=== PATIENT | male | born 2000 | race African-American/Black ===

== ENCOUNTER 2022-03-21 17:10 | Emergency (ER) | payer MEDICAID ==
[~2022-03-21] VITALS: Ht 180.3 cm; Wt 100.0 kg
[2022-03-21 18:22] LABS: BASOPHILS % 0.5 % (0.0-2.0); HEMATOCRIT. 38.1 % (42.0-52.0); HEMOGLOBIN. 12.5 g/dL (14.0-18.0); LYMPHOCYTES % 29.1 % (20.0-50.0); MEAN CORPUSCULAR HEMOGLOBIN 28.9 pg (28.0-32.0); MEAN CORPUSCULAR VOLUME 87.8 fL (80.0-94.0); MONOCYTES % 9.5 % (2.0-8.0); NEUTROPHILS % 58.9 % (40.0-76.0); PLATELET 187 x1000/uL (130-400); RED BLOOD CELL COUNT 4.34 mill/uL (4.7-6.1); RED CELL DISTRIBUTION WIDTH 16.1 % (11.6-14.6)
[2022-03-21 18:27] LABS: CHLORIDE 106 mEq/L (98-107)
[2022-03-21 18:37] LABS: ETHANOL BLOOD < 10 mg/dL
[2022-03-21 20:58] LABS: *AMPHETAMINES SCREEN URINE PRESUMTIVE POSITIVE (NEGATIVE); *BARBITURATES SCREEN URINE NEGATIVE (NEGATIVE); *BENZODIAZEPINES SCREEN URINE NEGATIVE (NEGATIVE); *COCAINE SCREEN URINE NEGATIVE (NEGATIVE); CANNABINOID URINE SCREEN NEGATIVE (NEGATIVE); METHADONE URINE SCREEN NEGATIVE (NEGATIVE); OPIATES URINE SCREEN PRESUMTIVE POSITIVE (NEGATIVE); PHENCYCLIDINE URINE SCREEN NEGATIVE (NEGATIVE)
[2022-03-21] MEDS ORDERED: ACETAMINOPHEN 325MG TABLET PO ONE (22:30)
[2022-03-21] MEDS ORDERED: LORAZEPAM 0.5MG TABLET PO ONE (22:45)
[2022-03-22 11:26] VITALS: BP 150/92
== END 2022-03-22 11:30 | disposition home or self-care (01) ==
LOC: ER 17:20
DX: F25.9 Schizoaffective disorder, unspecified (principal); R45.851 Suicidal ideations; R45.850 Homicidal ideations; F31.9 Bipolar disorder, unspecified; M79.642 Pain in left hand; Z91.14 Patient's other noncompliance with medication regimen; Z20.822 Contact with and (suspected) exposure to COVID-19
CPT/HCPCS: 29125; 36415; 73130; 80053; 80305; 80307; 80320; 80329; 85025; 87426; 99285; C9803; G0480